=== PATIENT | female | born 1970 | race African-American/Black ===

== ENCOUNTER 2017-06-05 06:10 | Inpatient (IN) | payer OTHER ==
[2017-06-05 06:45] LABS: ADD MAN DIFF? NO
[2017-06-05 06:50] LABS: WHITE BLOOD COUNT 4.2 10^3/ul (4.8-10.8)
[2017-06-05 06:50] LABS: BASOPHIL # 0.1 10^3/ul (0.0-0.1); BASOPHILS % 1.2 % (0.0-2.0); EOSINOPHILS # 0.1 10^3/ul (0.0-0.5); EOSINOPHILS % 2.8 % (0.0-7.0); HEMOGLOBIN 12.2 g/dl (12.0-16.0); LYMPHOCYTES # 1.9 10^3/ul (0.8-2.9); LYMPHOCYTES % 44.7 % (15.0-51.0); MEAN CORPUSCULAR HEMOGLOBIN 27.8 pg (29.0-33.0); MEAN CORPUSCULAR HGB CONC 33.9 g/dl (32.0-37.0); MEAN PLATELET VOLUME 9.3 fl (7.4-10.4); MONOCYTE # 0.4 10^3/ul (0.3-0.9); MONOCYTES % 9.2 % (0.0-11.0); NEUTROPHIL # 1.8 10^3/ul (1.6-7.5); NEUTROPHILS % 42.1 % (39.0-77.0); PLATELET COUNT 297 10^3/UL (140-415); RED BLOOD COUNT 4.39 10^6/ul (4.20-5.40); RED CELL DISTRIBUTION WIDTH 13.9 % (11.5-14.5)
[2017-06-05 06:54] LABS: ADD UMIC YES; UR ASCORBIC ACID NEGATIVE (NEGATIVE); UR BILIRUBIN (Dip) NEGATIVE (NEGATIVE); UR BLOOD (Dip) 2+ mg/dL (NEGATIVE); UR CLARITY CLEAR (CLEAR); UR COLOR STRAW (YELLOW); UR GLUCOSE (Dip) NEGATIVE (NEGATIVE); UR KETONES (Dip) NEGATIVE (NEGATIVE); UR LEUKOCYTE ESTERASE (Dip) NEGATIVE Leu/ul (NEGATIVE); UR NITRITE (Dip) NEGATIVE (NEGATIVE); UR RBC 0 /HPF (0-5); UR SPECIFIC GRAVITY (Dip) 1.012 (1.003-1.030); UR TOTAL PROTEIN (Dip) NEGATIVE (NEGATIVE); UR UROBILINOGEN (Dip) NEGATIVE (NEGATIVE); UR WBC 0 /HPF (0-5)
[2017-06-05 07:04] LABS: HOLD TRANSMISSIONS 1
[2017-06-05 07:14] LABS: INR 0.92; PROTIME 12.4 Sec (11.9-14.9)
[2017-06-05 07:15] LABS: PARTIAL THROMBOPLASTIN TIME 29.5 Sec (25.0-35.0)
[2017-06-05 07:18] LABS: ALANINE AMINOTRANSFERASE 23 IU/L (13-69); ALBUMIN 3.9 g/dl (3.3-4.9); ALBUMIN/GLOBULIN RATIO 1.08; ALKALINE PHOSPHATASE 54 IU/L (42-121); ANION GAP 13 (8-16); ASPARTATE AMINO TRANSFERASE 18 IU/L (15-46); BILIRUBIN,INDIRECT 0.1 mg/dl (0-1.1); BILIRUBIN,TOTAL 0.1 mg/dl (0.2-1.3); CARBON DIOXIDE 27 mmol/L (21-31); CHLORIDE 104 mmol/L (97-110); GLUCOSE 102 mg/dl (70-220); TOTAL PROTEIN 7.5 g/dl (6.1-8.1)
[2017-06-05 07:19] LABS: BLOOD UREA NITROGEN 16 mg/dl (7-20); CREATININE 0.74 mg/dl (0.44-1.00); POTASSIUM 4.2 mmol/L (3.5-5.1); SODIUM 140 mmol/L (135-144)
[2017-06-05] MEDS ORDERED: MIDAZOLAM 1 MG/ML 2 ML INJ (07:59)
[2017-06-05] MEDS ORDERED: morphine SULFATE/PF (10 MG/10 ML) INJ (08:00)
[2017-06-05] MEDS ORDERED: PHENYLephrine (100 MCG/ML) 5ML SYG (08:23)
[2017-06-05] MEDS ORDERED: SUGAMMADEX SODIUM 200 MG/2 ML VIAL IV (08:26)
[2017-06-05] MEDS ORDERED: ROCURONIUM 50 MG INJ (08:26)
[2017-06-05] MEDS ORDERED: CEFAZOLIN 1 GM INJ (08:26)
[2017-06-05] MEDS ORDERED: PROPOFOL 20 ML (08:26)
[2017-06-05] MEDS ORDERED: SUCCINYLCHOLINE CHLORIDE 100 MG/5 ML SYG IV (08:26)
[2017-06-05] MEDS ORDERED: LIDOCAINE 100 MG SYRINGE (08:26)
[2017-06-05] MEDS ORDERED: METOCLOPRAMIDE 10 MG INJ IV (08:30)
[2017-06-05] MEDS ORDERED: FENTAnyl 50 MCG/ML VIAL IV ×2 (08:30)
[2017-06-05] MEDS ORDERED: DIPHENHYDRAMINE 50 MG INJ IV (08:30)
[2017-06-05] MEDS ORDERED: HYDROmorphONE (0.2 MG/ML) 10ML SYG IV ×2 (08:30)
[2017-06-05] MEDS: VASOPRESSIN 20 UNITS INJ (08:44)
[2017-06-05] MEDS ORDERED: THROMBIN 5000 UNIT VIAL (09:42)
[2017-06-05] MEDS ORDERED: ACETAMINOPHEN 1000MG/100ML IV 100 ML (10:09)
[2017-06-05] MEDS ORDERED: LACTATED RINGER'S 1,000 ML IV (10:20)
[2017-06-05] MEDS ORDERED: FENTAnyl 50 MCG/ML VIAL (10:21)
[2017-06-05] MEDS ORDERED: KETOROLAC 30 MG INJ IV (10:30)
[2017-06-05] MEDS ORDERED: morphine 2 MG INJ IV (10:30)
[2017-06-05] MEDS ORDERED: ACETAMINOPHEN 325 MG TAB PO (10:30)
[2017-06-05] MEDS ORDERED: OXYCODONE/ACETAMINOPHEN (5/325) TAB PO (10:30)
[2017-06-05] MEDS ORDERED: CEFAZOLIN 2 GM/50 ML (PMX) 50 ML IVPB (10:30)
[2017-06-05] MEDS: HYDROmorphONE (0.2 MG/ML) 10ML SYG IV ×3 (10:38→11:41)
[2017-06-05] MEDS: ONDANSETRON 4 MG INJ IV ×2 (10:39→17:47)
[2017-06-05] MEDS: MEPERIDINE 25 MG INJ IV (10:42)
[2017-06-05] MEDS: LACTATED RINGER'S 1,000 ML (ENTER RATE) IV* (13:01)
[2017-06-05] MEDS: LACTATED RINGER'S 500 ML IV ×2 (13:26→17:53)
[2017-06-05] MEDS: ACETAMINOPHEN 1000MG/100ML IV 100 ML IVPB ×2 (15:00→21:29)
[2017-06-05] MEDS: CEFAZOLIN 1 GM/50 ML (PMX) 50 ML IVPB (16:51)
[2017-06-06] MEDS: CEFAZOLIN 1 GM/50 ML (PMX) 50 ML IVPB ×2 (00:34→08:34)
[2017-06-06] MEDS: ACETAMINOPHEN 1000MG/100ML IV 100 ML IVPB ×3 (02:30→14:34)
[2017-06-06 06:22] LABS: ADD MAN DIFF? NO
[2017-06-06] MEDS: PANTOPRAZOLE 40 MG INJ IV (06:23)
[2017-06-06 06:30] LABS: BASOPHILS % 0.3 % (0.0-2.0); EOSINOPHILS # 0.1 10^3/ul (0.0-0.5); HEMATOCRIT 32.5 % (37.0-47.0); HEMOGLOBIN 10.4 g/dl (12.0-16.0); LYMPHOCYTES # 1.6 10^3/ul (0.8-2.9); LYMPHOCYTES % 26.7 % (15.0-51.0); MEAN CORPUSCULAR HEMOGLOBIN 26.7 pg (29.0-33.0); MEAN CORPUSCULAR VOLUME 83.3 fl (82.0-101.0); MEAN PLATELET VOLUME 9.8 fl (7.4-10.4); MONOCYTE # 0.6 10^3/ul (0.3-0.9); MONOCYTES % 9.3 % (0.0-11.0); NEUTROPHIL # 3.7 10^3/ul (1.6-7.5); NEUTROPHILS % 62.5 % (39.0-77.0); PLATELET COUNT 265 10^3/UL (140-415)
[2017-06-06 06:30] LABS: WHITE BLOOD COUNT 5.9 10^3/ul (4.8-10.8)
[2017-06-06 07:10] LABS: ANION GAP 9 (8-16); BLOOD UREA NITROGEN 7 mg/dl (7-20); CALCIUM 8.2 mg/dl (8.4-10.2); CARBON DIOXIDE 29 mmol/L (21-31); CHLORIDE 105 mmol/L (97-110); CREATININE 0.67 mg/dl (0.44-1.00); GLUCOSE 96 mg/dl (70-220); SODIUM 139 mmol/L (135-144)
[2017-06-06] MEDS: ENOXAPARIN 40 MG/0.4 ML SYG SC (09:06)
[2017-06-06] MEDS: OXYCODONE/ACETAMINOPHEN (5/325) TAB PO ×3 (09:40→21:22)
[2017-06-07] MEDS: OXYCODONE/ACETAMINOPHEN (5/325) TAB PO ×2 (02:28→07:53)
[2017-06-07] MEDS: PANTOPRAZOLE 40 MG INJ IV (06:10)
[2017-06-07] MEDS: ENOXAPARIN 40 MG/0.4 ML SYG SC (09:35)
[2017-06-08] MEDS ORDERED: IBUPROFEN 600 MG TAB PO (10:30)
== END 2017-06-07 10:20 | disposition home or self-care (01) | DRG 743 ==
LOC: REC 06:10 → MS2 12:25
PROC: 0UT90ZZ Resection of Uterus, Open Approach (ICD-10-PCS; principal; 2017-06-05 07:30)
PROC: 0UT70ZZ Resection of Bilateral Fallopian Tubes, Open Approach (ICD-10-PCS; 2017-06-05 07:30)
PROC: 0UT00ZZ Resection of Right Ovary, Open Approach (ICD-10-PCS; 2017-06-05 07:30)
DX: D25.1 Intramural leiomyoma of uterus (principal); I10 Essential (primary) hypertension; N93.9 Abnormal uterine and vaginal bleeding, unspecified; E66.9 Obesity, unspecified; D25.2 Subserosal leiomyoma of uterus; D25.0 Submucous leiomyoma of uterus; Z68.37 Body mass index [BMI] 37.0-37.9, adult; R10.2 Pelvic and perineal pain
CPT/HCPCS: 80048; 80053; 81001; 85025; 85610; 85730; 86850; 86900; 86901; 87086; 88305; 88311